=== PATIENT | male | born 1950 | race Caucasian/White ===

== ENCOUNTER → 2017-03-11 | Outpatient (CLI) | payer MEDICARE ==
[2016-08-14 16:05] VITALS: BP 145/78
[~2017-03-11] MED LIST: FINA5TAB4 PO; HYDR-79 PO; LACT1CAP8 PO; LEVO750T31 PO; PROBIO; TAMS0.4C2 PO; fish
--- NOTE | 2017-03-11 13:22 | CARD ---
APPROVED REPORT EXAM: Two-dimensional and M-mode echocardiogram with Doppler and color Doppler. Other Information Quality : GoodHR: 64bpm Rhythm : NSR INDICATION Mitral valve insufficiency 2D DIMENSIONS RVDd3.2 (2.9-3.5cm)Left Atrium(2D)4.7 (1.6-4.0cm) IVSd0.9 (0.7-1.1cm)Aortic Root(2D)3.7 (2.0-3.7cm) LVDd5.6 (3.9-5.9cm)LVOT Diameter2.4 (1.8-2.4cm) PWd0.8 (0.7-1.1cm)LVDs4.0 (2.5-4.0cm) FS (%) 29.8 %SV87.6 ml LVEF(%)56.2 (>50%) Aortic Valve AoV Peak Enzo.160.2cm/sAoV VTI31.4cm AO Peak GR.10.3mmHgLVOT Peak Enzo.145.3cm/s AO Mean GR.5mmHgAVA (VMAX)4.21cm2 Mitral Valve MV E Cxylhsgt29.9cm/sMV E Peak Gr.4mmHg MV DECEL [id number] A Ulvlbgzi46.4cm/s MV E Mean Gr.2mmHgE/A Ratio1.6 MV A [id number] Pulmonary Valve PV Peak Gxcwapqi025.5cm/s Tricuspid Valve TR P. Qsekofeh394na/sTR Peak Gr.39mmHg Pulmonary Vein S1 Wqvnnwvl98.2cm/sD2 Qelkhmfj57.7cm/s PVa ttesnpls44fjlx LEFT VENTRICLE The left ventricle is normal size. There is normal left ventricular wall thickness. The left ventricu lar systolic function is normal. The Ejection Fraction is 55-60%. There is normal LV segmental wall m otion. The left ventricular diastolic function and filling is normal for age. RIGHT VENTRICLE The right ventricle is normal size. There is normal right ventricular wall thickness. The right ventr icular systolic function is normal. ATRIA The left atrium is moderaely dilated. The right atrium size is normal. The interatrial septum is inta ct with no evidence for an atrial septal defect or patent foramen ovale as noted on 2-D or Doppler im aging. AORTIC VALVE The aortic valve is mildly sclerotic. The aortic valve is trileaflet. Doppler and Color Flow revealed no significant aortic regurgitation. There is no significant aortic valvular stenosis. MITRAL VALVE The mitral valve leaflets are moderately thickened. There is a prolapse of the posterior mitral valve leaflet. There is no mitral valve stenosis. Doppler and Color Flow revealed moderate to severe karlos l regurgitation. The mitral regurgitant jet is eccentrically directed. TRICUSPID VALVE Doppler and Color Flow revealed mild tricuspid regurgitation. The pulmonary artery systolic pressure is estimated at 42 mmHg. There is mild pulmonary hypertension. PULMONIC VALVE Doppler and Color Flow revealed mild pulmonic valvular regurgitation. There is no pulmonic valvular s tenosis. GREAT VESSELS The aortic root is normal in size. The ascending aorta is normal in size. The pulmonary artery is nor mal. The IVC is normal in size and collapses >50% with inspiration. PERICARDIAL EFFUSION There is no evidence of significant pericardial effusion. Critical Notification Critical Value: No <Conclusion> The left ventricular systolic function is normal. The Ejection Fraction is 55-60%. There is normal LV segmental wall motion. The left atrium is moderaely dilated. There is a prolapse of the posterior mitral valve leaflet. Moderate to severe mitral regurgitation with eccentric anteriorily directed jet. Mild tricuspid regurgitation. The pulmonary artery systolic pressure is estimated at 42 mmHg. There is no evidence of significant pericardial effusion.
== END | disposition home or self-care (01) ==
LOC: ECHO 09:38
PROVIDERS: ATTEND Internal Medicine Cardiovascular Disease
DX: I34.0 Nonrheumatic mitral (valve) insufficiency (principal); I07.1 Rheumatic tricuspid insufficiency; I27.2 Other secondary pulmonary hypertension
CPT/HCPCS: 93306

== ENCOUNTER → 2017-06-12 | Outpatient (CLI) | payer MEDICARE ==
[2016-08-14 16:05] VITALS: BP 145/78
--- NOTE | 2017-06-12 13:37 | KCIC ---
Examination: CT maxillofacial without contrast HISTORY: History of chronic pansinusitis COMPARISON: 07/12/2016 TECHNIQUE: Axial CT images of the proximal superficial bones were performed without contrast. Coronal and sagittal reformats are performed Exposure: One or more of the following individualized dose reduction techniques were utilized for this examination: 1. Automated exposure control 2. Adjustment of the mA and/or kV according to patient size 3. Use of iterative reconstruction technique. Findings: There is moderate mucosal thickening identified in the bilateral frontal sinuses and left ethmoidal sinuses. Prior surgical changes identified in the right and left ethmoidal sinus region. There is moderate mucosal thickening identified in the right maxillary sinus. There is complete opacification of the left maxillary sinus with extension of the opacification causing obstruction of the ostiomeatal unit and extending into the ethmoidal sinus and nasal cavity extending posteriorly. Mild mucosal thickening bilateral sphenoid sinuses. Bilateral orbital globes appear intact. IMPRESSION: 1. Complete opacification the left maxillary sinus causing obstruction of the ostiomeatal unit with extension of the opacification in the left ethmoidal sinus and nasal cavity extending posteriorly, likely sinus disease. 2. Moderate mucosal thickening identified in the bilateral frontal sinuses and left ethmoid sinuses and right maxillary sinus likely sinus disease. 3. Prior surgical change of the right ethmoidal and maxillary sinus. Electronically signed by: Aman Burk MD (06/12/2017 1:34 PM) [id number]
== END | disposition home or self-care (01) ==
LOC: KCIC CT 12:55
PROVIDERS: ATTEND Otolaryngology
DX: J32.4 Chronic pansinusitis (principal)
CPT/HCPCS: 70486

== ENCOUNTER → 2017-06-21 | Outpatient (CLI) | payer MEDICARE ==
[~2017-06-21] VITALS: Ht 172.7 cm; Wt 72.6 kg
[2017-06-21] VITALS (9 sets, daily range): BP systolic 111–129; BP diastolic 70–86
[~2017-06-21] MED LIST changes: +0.9 % SODIUM CHLORIDE 10 ML DISP.SYRIN. IV PRN; +ASPI-482 PO; +ASPIRIN ENTERIC COATED 81 MG TABLET.DR. PO SCH; +HEPARIN for ARTERIAL LINE 1,500 ML ONE; +HYDROcodone/APAP 5/325MG 1 TAB TABLET PO PRN; +IODIXANOL 320 MG/ML 100 ML VIAL. IART ONE; +IODIXANOL 320 MG/ML 100 ML VIAL. ONE; +IV NORMAL SALINE 1000ML BAG 1,000 ML IV SCH; +LEVO500T59 PO; +LIDOCAINE 2% 20 ML VIAL. IJ ONE; +LIDOCAINE 2% 20 ML VIAL. ONE; +LISI10TA2 PO; +LISINOPRIL 5 MG TABLET. PO SCH; +MIDAZOLAM HCL/PF 2 MG/2 ML VIAL. IV ONE; +MIDAZOLAM HCL/PF 2 MG/2 ML VIAL. ONE; +NITROGLYCERIN SUBLINGUAL 0.4 MG BOTTLE OF 25. SL PRN; +PRED-220 PO; +fentaNYL PF VIAL 100 MCG/2 ML VIAL IV ONE; +fentaNYL PF VIAL 100 MCG/2 ML VIAL ONE
[2017-06-21 07:12] LABS: CALCIUM 8.5 mg/dL (8.5-10.1); CREATININE 1.1 mg/dL (0.7-1.3); GFR 66.8; POTASSIUM 3.9 mmol/L (3.5-5.1)
[2017-06-21 07:17] LABS: HEMATOCRIT 43.5 % (39.0-53.0); HEMOGLOBIN 14.9 g/dL (13.0-17.5); RED BLOOD COUNT 4.63 x10^6/uL (4.30-5.70); RED CELL DISTRIBUTION WIDTH 13.9 % (11.5-14.5); WHITE BLOOD COUNT 11.5 x10^3/uL (4.0-11.0)
[2017-06-21 07:26] LABS: PROTHROMBIN TIME PATIENT 12.6 SEC (11.7-14.0)
--- NOTE | 2017-06-21 09:16 | PDOC ---
MODERATE SEDATION ASSESSMENT RISKS/ALTERNATIVES Risks/Alternatives Risks and alternatives of this type of sedation and procedure discussed with: RISK/ALTERNATIVES: Patient H & P ON CHART H & P H & P on chart and reviewed for co-morbid conditions and appropriate labs. H&P ON CHART: Yes STATUS PREG STATUS ASSESSED: N/A MEDS/ALLERGIES REVIEWED Meds/Allergies Reviewed Medications and Allergies including time and route of recently administered narcotics and sedatives. MEDS/ALLERGIES REVIEWED: Yes ASA RATING ASA RATING: II AIRWAY ASSESSMENT Airway Assessment Airway patency, oral function limitations, presence of caps, crowns, dentures, partials, and ability to extend neck assessed. AIRWAY ASSESSMENT: Yes MALLAMPATI SCORE MALLAMPATI SCORE: II PRE-SEDATION ASSESSMENT PRE-SEDATION ASSESSMENT: Yes VERITO GARDNER MD Jun 21, 2017 09:15
--- NOTE | 2017-06-21 13:20 | CARD ---
APPROVED REPORT Procedures. Left heart catheterization. Right heart catheterization. Left ventriculogram. Aortic root injection. Selective coronary angiogram. The patient is a 67-year-old male with increasing shortness of breath. Patient also had a history of valvular heart disease. In this setting catheterization was recommended to evaluate his coronaries as well as his valvular disease as an etiology of his shortness of breath. Risks and benefits were disc ussed and the patient agreed to proceed. After informed consent was obtained the patient was brought to the heart catheterization lab. The are a of the right femoral artery and vein were prepared in the usual manner with Betadine, sterile drapi ng and local anesthetic. An 18-gauge needle was used to enter the right femoral artery, a wire place d and a 6 [place] sheath placed the wire. An 18-gauge needle was used to enter the right femoral vein, a wire placed and a 6 [place] sheath placed over the wire. Initially a 6 [place] JL4 diagnostic cathet er was used to engage the left coronary system and sequential injections in variuos views were obtain ed. A 6 [place] diagnostic Gilberto right diagnostic catheter was used to engage the right coronary ar marc and sequential injections in various views were obtained. A pigtail catheter was advanced into a scending aorta and then the left ventricle. Measures were obtained. A 30 AMARO left ventricular gram w as performed. Pullback pressures were measured. A 30 RAQUEL aortic root injection was performed. The pi gtail was then removed. A Topsham-Adonay catheter was then placed sequentially from the RA to the RV to th e PDA to the pulmonary wedge positions. Measurements in all positions were obtained. The catheter was then removed from the patient. Injection of the femoral sheath showed normal placement. The sheath was removed and sealed with a minx system. The venous sheath was removed and sealed with direct pres sure. The patient was moved to the holding area. Findings. Hemodynamics. LV pressure of 128/20, aortic root pressure of 126/80, pulmonary capillary wedge pressure of 16. Pulm onary artery pressure of 28/10, RV pressure 33/12/17, RA pressure of 8. Coronaries. Left main. The left main was a normal-size vessel with no lesions. Left anterior descending. The LAD was a moderate to moderately small vessel. It had no lesions. Left circumflex. The left circumflex is a moderate size vessel with no lesions. Right coronary artery the right coronary is a moderate size vessel. He had mild proximal to mid lesio ns of 10%. Left ventriculogram. The left ventricle showed global hypokinesis. Estimated ejection fraction of 38%. No significant mitr al regurgitation was noted. Aortic root. The aortic root appeared normal. There was mild aortic insufficiency. <Conclusion> Minimal coronary artery disease. Decreased LV systolic function on a global basis with an ejection fraction of 38%. Mild aortic insufficiency.
== END | disposition home or self-care (01) ==
LOC: CCL 06:34
PROVIDERS: ATTEND Internal Medicine Cardiovascular Disease
DX: I25.10 Atherosclerotic heart disease of native coronary artery without angina pectoris (principal); I35.1 Nonrheumatic aortic (valve) insufficiency; K21.9 Gastro-esophageal reflux disease without esophagitis; F32.9 Major depressive disorder, single episode, unspecified; F17.200 Nicotine dependence, unspecified, uncomplicated; Z87.442 Personal history of urinary calculi; Z86.69 Personal history of other diseases of the nervous system and sense organs; Z72.89 Other problems related to lifestyle
CPT/HCPCS: 36415; 80048; 85027; 85610; 93460; 93567; 99152; 99153; C1769; C1771; C1773; C1892; J1644; J2250; J3010; G0269; J2001

== ENCOUNTER 2017-07-26 10:26 | Day surgery (SDC) | payer MEDICARE ==
[~2017-07-26 10:26] MED LIST changes: -0.9 % SODIUM CHLORIDE 10 ML DISP.SYRIN. IV PRN; -ASPIRIN ENTERIC COATED 81 MG TABLET.DR. PO SCH; -HEPARIN for ARTERIAL LINE 1,500 ML ONE; -HYDROcodone/APAP 5/325MG 1 TAB TABLET PO PRN; +HYDROmorphone 2 MG/ML VIAL IV PRN; -IODIXANOL 320 MG/ML 100 ML VIAL. IART ONE; -IODIXANOL 320 MG/ML 100 ML VIAL. ONE; -IV NORMAL SALINE 1000ML BAG 1,000 ML IV SCH; +IV RINGERS,LACTATED 1000ML 1,000 ML IV SCH; +LIDOCAINE 1% PF 2 ML VIAL. ID PRN; -LIDOCAINE 2% 20 ML VIAL. IJ ONE; -LIDOCAINE 2% 20 ML VIAL. ONE; -LISINOPRIL 5 MG TABLET. PO SCH; -MIDAZOLAM HCL/PF 2 MG/2 ML VIAL. IV ONE; -MIDAZOLAM HCL/PF 2 MG/2 ML VIAL. ONE; +MORPHINE SULFATE 2 MG/ML DISP.SYRIN. IV PRN; -NITROGLYCERIN SUBLINGUAL 0.4 MG BOTTLE OF 25. SL PRN; +ONDANSETRON PF 4 MG/2 ML VIAL. IV PRN; +PROCHLORPERAZINE 10 MG/2 ML VIAL. IV PRN; -fentaNYL PF VIAL 100 MCG/2 ML VIAL IV ONE; +fentaNYL PF VIAL 100 MCG/2 ML VIAL IV PRN; -fentaNYL PF VIAL 100 MCG/2 ML VIAL ONE
[2017-07-26] MEDS ORDERED: LACT1CAP8 PO (10:51)
[2017-07-26] MEDS ORDERED: LISI10TA2 PO (10:53)
--- NOTE | 2017-07-26 11:16 | EKG ---
[facility] [address] [place] [address] Test Date: 2017-07-26 Test Time: 11:21:23 Pat Name: ELVI PAREKH Department: Room: Gender: News Intern: SENG : 1950 Requested By: VERITO GARDNER Order Number: [id number] Reading MD: Patito Scott Measurements Intervals [place] Rate: 56 P: 29 IN: 170 QRS: -26 QRSD: 94 T: 59 QT: 386 QTc: 375 Interpretive Statements SINUS RHYTHM LEFTWARD AXIS T ABNORMALITY IN HIGH LATERAL LEADS ABNORMAL ECG Electronically Signed On 07-28-2017 16:26:39 CDT by Patito Scott
[2017-07-26] MEDS ORDERED: BENZOCAINE ONE 20% MUCOSAL SPRAY. (11:39)
[2017-07-26] MEDS ORDERED: LIDOCAINE 2% VISCOUS 15 ML SOLUTION. ONE (11:39)
[2017-07-26] MEDS ORDERED: LIDOCAINE 2% TOPICAL JELLY 30GM TUBE. TP ONE (11:40)
[2017-07-26] MEDS ORDERED: LIDOCAINE 1% PF 2 ML VIAL. ID PRN (12:00)
[2017-07-26] MEDS ORDERED: fentaNYL PF VIAL 100 MCG/2 ML VIAL IV PRN ×2 (12:00)
[2017-07-26] MEDS ORDERED: MIDAZOLAM HCL/PF 2 MG/2 ML VIAL. IV PRN (12:00)
[2017-07-26] MEDS ORDERED: LIDOCAINE 2% PF Vial for OR 5 ML VIAL. ONE (12:04)
[2017-07-26] MEDS ORDERED: PROPOFOL 20 ML IV ONE (12:04)
[2017-07-26] MEDS ORDERED: PROPOFOL 40 ML IV ONE (12:06)
[2017-07-26 13:28] VITALS: BP 123/85
--- NOTE | 2017-07-26 13:41 | CARD ---
APPROVED REPORT EXAM: Transesophageal echocardiogram with color flow Doppler. INDICATION Murmur Reason For Test : evaluate mitral regurgitation PROCEDURE After obtaining informed consent, patient underwent transesophageal echo in the CV OBSVPACU. Type of Sedation : General Anesthesia Sedation was provided by anesthesiologist, see EMR for medications administered. Sedation was administered by Dr. Simms. Sedation was achieved with Propofol 150mg intravenously. Transesophageal probe was inserted and advanced into esophagus by Eb Velazquez MD. The ZAKIA was performed without complications. Throughout the procedure, the blood pressure, pulse oximetry, cardiac rhythm, and rate were monitored . LEFT VENTRICLE The left ventricle is normal size. Left ventricle systolic function is normal. The Ejection Fraction is 55-60%. There is normal LV segmental wall motion. RIGHT VENTRICLE The right ventricle is normal size. The right ventricular systolic function is normal. ATRIA The left atrium is moderately dilated. The right atrium is mildly dilated. The interatrial septum is intact with no evidence for an atrial septal defect or patent foramen ovale as noted on 2-D or Dopple r imaging. There is no thrombus noted in the left atrial appendage. AORTIC VALVE The aortic valve is mildly thickened but opens well. Doppler and Color Flow revealed no significant a ortic regurgitation. There is no significant aortic valvular stenosis. There is no aortic valvular ve getation. 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 There is a flail p osterior mitral valve leaflet. Doppler and Color-flow revealed eccentric anteriorly directed severe m itral regurgitation. TRICUSPID VALVE The tricuspid valve leaflets are thickened or calcified, but open well. Doppler and Color Flow reveal ed mild tricuspid regurgitation. There is no tricuspid valve prolapse or vegetation. There is no tric uspid valve stenosis. PULMONIC VALVE The pulmonary valve is normal in structure and function. Doppler and Color Flow revealed no pulmonic valvular regurgitation. GREAT VESSELS The aortic root is normal in size. The ascending aorta is normal in size. PERICARDIAL EFFUSION There is no evidence of significant pericardial effusion. There is no pleural effusion. Critical Notification Critical Value: No <Conclusion> Left ventricle systolic function is normal. The Ejection Fraction is 55-60%. There is normal LV segmental wall motion. 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 Doppler and Color-flow revealed eccentric anteriorly directed severe mitral regurgitation.
== END 2017-07-26 13:35 | disposition home or self-care (01) ==
LOC: SURG 10:26
PROVIDERS: ATTEND Internal Medicine Cardiovascular Disease
DX: I08.1 Rheumatic disorders of both mitral and tricuspid valves (principal); K21.9 Gastro-esophageal reflux disease without esophagitis; F32.9 Major depressive disorder, single episode, unspecified; M19.91 Primary osteoarthritis, unspecified site; Z72.89 Other problems related to lifestyle; Z87.442 Personal history of urinary calculi; Z87.39 Personal history of other diseases of the musculoskeletal system and connective tissue
CPT/HCPCS: 93005; 93312; 93320; 93325; J2704; J2001

== ENCOUNTER → 2017-08-19 | Outpatient (CLI) | payer MEDICARE ==
[2017-07-26 13:28] VITALS: BP 123/85
[~2017-08-19] MED LIST changes: +ASCO500C PO; -HYDROmorphone 2 MG/ML VIAL IV PRN; -IV RINGERS,LACTATED 1000ML 1,000 ML IV SCH; -LIDOCAINE 1% PF 2 ML VIAL. ID PRN; -MORPHINE SULFATE 2 MG/ML DISP.SYRIN. IV PRN; -ONDANSETRON PF 4 MG/2 ML VIAL. IV PRN; -PROCHLORPERAZINE 10 MG/2 ML VIAL. IV PRN; +RANI150C PO; -fentaNYL PF VIAL 100 MCG/2 ML VIAL IV PRN
--- NOTE | 2017-08-19 08:45 | RAD ---
Indication: Preop for cardiac surgery. Axial imaging through the chest was performed without contrast. No prior studies are available for comparison. No axillary lymphadenopathy is seen. No definite hilar or mediastinal lymphadenopathy is seen. There are coronary arterial calcifications present. No pericardial or pleural fluid is detected. Parenchymal evaluation does show some minimal linear scarring or atelectasis in both lower lobes as well as the lingula. No infiltrate, nodule or mass is detected. The upper abdomen does demonstrate a 6.3 cm cyst in the upper pole of the right kidney. There are also small nonobstructing calculi in the right kidney. Impression: 1. Essentially unremarkable noncontrast CT of the chest. 2. Nonobstructing right renal calculi and right renal cyst. PQRS Compliance Statement: One or more of the following individualized dose reduction techniques were utilized for this examination: 1. Automated exposure control 2. Adjustment of the mA and/or kV according to patient size 3. Use of iterative reconstruction technique
--- NOTE | 2017-08-19 09:48 | RAD ---
APPROVED REPORT Patient Location: OUT-PATIENT Laterality:Bilateral Indications PREOP CABG Doppler Spectral Velocity Analysis Right Left mCCA 125/37 cm/smCCA 145/42 cm/s ECA 91/ cm/sECA 149/ cm/s pICA 87/38 cm/spICA 87/20 cm/s Jeannette 78/32 cm/smICA 85/37 cm/s dICA 85/38 cm/sdICA 82/39 cm/s ICA/CCA 0.70ICA/CCA 0.60 Findings Hatfield scale images of the bilateral common carotid arteries and the internal carotid arteries reveal m inimal intimal hyperplasia. Spectral waveforms and color Doppler do not reveal any evidence of high-grade disease in the bilatera l internal carotid vessels. The left external carotid vessel appears to be approximately 0-50% stenos ed based on velocity criteria. The right external carotid artery is unremarkable. The bilateral vertebral velocities are antegrade. Critical Notification Critical Value: No <Conclusion> 1. No evidence of high-grade internal carotid arterial disease bilaterally. 2. Antegrade vertebral velocities bilaterally.
== END | disposition home or self-care (01) ==
LOC: US 08:03
PROVIDERS: ATTEND Thoracic Surgery (Cardiothoracic Vascular Surgery)
DX: Z01.818 Encounter for other preprocedural examination (principal); N20.0 Calculus of kidney; N28.1 Cyst of kidney, acquired; Z95.2 Presence of prosthetic heart valve
CPT/HCPCS: 71250; 93880

== ENCOUNTER → 2017-08-21 | Outpatient (CLI) | payer MEDICARE ==
[2017-07-26 13:28] VITALS: BP 123/85
[~2017-08-21] MED LIST changes: +OXYC-323 PO
[2017-08-21 11:08] LABS: BASO % 1 % (0-3); EOS % 10 % (0-3); HEMATOCRIT 43.1 % (39.0-53.0); HEMOGLOBIN 14.5 g/dL (13.0-17.5); LYMPH # 1.3 x10^3/uL (1.0-4.8); LYMPH % 21 % (24-48); MEAN CORPUSCULAR HEMOGLOBIN 32 pg (25-35); MEAN CORPUSCULAR HGB CONC 34 g/dL (31-37); MEAN CORPUSCULAR VOLUME 94 fL (79-100); MONO % 8 % (0-9); NEUT % 61 % (31-73); PLATELET COUNT 209 x10^3/uL (140-400); RED BLOOD COUNT 4.57 x10^6/uL (4.30-5.70); RED CELL DISTRIBUTION WIDTH 13.5 % (11.5-14.5); WHITE BLOOD COUNT 6.1 x10^3/uL (4.0-11.0)
[2017-08-21 11:26] LABS: ALBUMIN 3.4 g/dL (3.4-5.0); ALBUMIN/GLOBULIN RATIO 1.2 (1.0-1.7); CALCIUM 8.3 mg/dL (8.5-10.1); GFR 74.5; POTASSIUM 3.7 mmol/L (3.5-5.1); TOTAL BILIRUBIN 0.7 mg/dL (0.2-1.0); TOTAL PROTEIN 6.3 g/dL (6.4-8.2)
[2017-08-21 11:30] LABS: INR 1.1 (0.8-1.1); PROTHROMBIN TIME PATIENT 13.3 SEC (11.7-14.0)
== END | disposition home or self-care (01) ==
LOC: SURGPAT 10:32
PROVIDERS: ATTEND Thoracic Surgery (Cardiothoracic Vascular Surgery)
DX: Z01.818 Encounter for other preprocedural examination (principal); I34.0 Nonrheumatic mitral (valve) insufficiency
CPT/HCPCS: 36415; 80053; 85025; 85610; 85730; 87641

== ENCOUNTER → 2017-09-27 | Outpatient (CLI) | payer MEDICARE | END | disposition home or self-care (01) | LOC: RAD 12:08 | DX: I08.1 Rheumatic disorders of both mitral and tricuspid valves (principal); I48.91 Unspecified atrial fibrillation; I49.8 Other specified cardiac arrhythmias; J90 Pleural effusion, not elsewhere classified; Z98.890 Other specified postprocedural states | CPT/HCPCS: 71020; 93306 ==

== ENCOUNTER 2017-10-02 06:35 | Day surgery (SDC) | payer MEDICARE ==
[2017-10-02] MEDS ORDERED: BENZOCAINE ONE 20% MUCOSAL SPRAY. ×2 (07:21→07:22)
[2017-10-02] MEDS ORDERED: LIDOCAINE 2% VISCOUS 15 ML SOLUTION. (07:21)
[2017-10-02] MEDS ORDERED: LIDOCAINE 2% TOPICAL JELLY 5GM TUBE. TP (07:22)
[2017-10-02] MEDS: IV RINGERS,LACTATED 1000ML 1,000 ML IV (07:52)
[2017-10-02] MEDS ORDERED: ePHEDrine PF IN SALINE 50 MG/5 ML DISP.SYRIN IV (07:55)
[2017-10-02] MEDS ORDERED: PROPOFOL 40 ML IV (07:56)
[2017-10-02] MEDS ORDERED: LIDOCAINE 2% PF Vial for OR 5 ML VIAL. (07:56)
[2017-10-02] MEDS: BENZOCAINE ONE 20% MUCOSAL SPRAY. MM (08:15)
[2017-10-02] MEDS: LIDOCAINE 2% TOPICAL JELLY 5GM TUBE. TP (08:18)
[2017-10-02] MEDS ORDERED: IV RINGERS,LACTATED 1000ML 1,000 ML IV (09:24)
== END 2017-10-02 10:23 | disposition home or self-care (01) ==
LOC: SURG 06:35
DX: I50.1 Left ventricular failure, unspecified (principal); I48.91 Unspecified atrial fibrillation; K21.9 Gastro-esophageal reflux disease without esophagitis; F32.9 Major depressive disorder, single episode, unspecified; F17.200 Nicotine dependence, unspecified, uncomplicated; Z87.442 Personal history of urinary calculi; Z87.39 Personal history of other diseases of the musculoskeletal system and connective tissue; Z72.89 Other problems related to lifestyle; Z86.14 Personal history of Methicillin resistant Staphylococcus aureus infection
CPT/HCPCS: 93312; 93325; 99152; 99153; J2704